=== PATIENT | female | born 1955 | race Caucasian/White ===

== ENCOUNTER 2016-11-07 18:37 | Emergency (ER) | payer BC ==
[2016-11-07] MEDS ORDERED: Aspirin Low Dose CHEW TAB* 81 MG PO ONE (19:44)
[2016-11-07] MEDS ORDERED: diPHENhydraMINE IV* 50 MG/ML 1 ml VIAL (BENADRYL) SLOW PUSH ONE (20:16)
[2016-11-07] MEDS ORDERED: Metoclopramide IV* 5 MG/ML 2 ML VIAL IV SLOW PU ONE (20:16)
[2016-11-07] MEDS ORDERED: NS 0.9% 1000 ML* 1,000 ML IV ONE (20:18)
--- NOTE | 2016-11-07 21:07 | RAD ---
Indication: Recurrent headaches. CT of the brain was performed without IV contrast. Ventricular structures are midline. No midline shift is noted. The extra-axial spaces are unremarkable. There is no evidence of intracranial mass or hemorrhage. No other high or low density lesions identified. Mastoid air cells and paranasal sinuses are otherwise unremarkable. IMPRESSION: No intracranial mass or hemorrhage is noted.
--- NOTE | 2016-11-07 21:08 | RAD ---
Indication: Headaches, hypertension. Single frontal view of the chest performed at 1955 hours was reviewed. No prior study is available for comparison. No mediastinal shift is noted. Heart is of normal size and configuration. Lung garcia appear clear. IMPRESSION: NO ACTIVE CARDIOPULMONARY DISEASE IS NOTED.
[2016-11-07 21:56] LABS: Hematocrit 42 % (35-47); Hemoglobin 14.1 g/dl (12.0-16.0); Mean Corpuscular HGB Conc 34 g/dl (31-36); Mean Corpuscular Hemoglobin 31 pg (27-31); Mean Corpuscular Volume 90 fL (80-97); Mean Platelet Volume 8 um3 (7.4-10.4); Red Cell Distribution Width 14 % (10.5-15); White Blood Count 9.4 10^3/ul (3.5-10.8)
[2016-11-07 22:07] LABS: Albumin 4.7 g/dL (3.2-5.2); BUN/Creatinine Ratio 14.9 (8-20); Calcium 9.9 mg/dL (8.6-10.3); EGFR African American 103.3 (>60); EGFR Non-African American 80.3 (>60); Globulin 2.9 g/dL (2-4); Potassium 3.1 mmol/L (3.5-5.0); Total Bilirubin 0.9 mg/dL (0.2-1.0); Total Protein 7.6 g/dL (6.4-8.9)
[2016-11-07] MEDS ORDERED: Ketorolac INJ* 30 MG/ML 1 ML VIAL IV PUSH ONE (22:40)
[2016-11-07] MEDS ORDERED: Dexamethasone IV* 4 MG/ML 1 ML (4 MG) IV SLOW PU ONE (22:40)
[2016-11-07] MEDS ORDERED: Potassium Chlor TAB* 20 MEQ TAB.ER PO ONE (22:43)
[2016-11-07 22:48] LABS: Erythrocyte Sed Rate 8 mm/Hr (0-30)
[2016-11-07 23:30] VITALS: BP 148/75
--- NOTE | 2016-11-20 15:21 | ED ---
Renetta Andrade Thomas, scribed for Milton Cohen MD on 11/07/16 at 2053 . Headache - HPI Summary HPI Summary: The pt is a 61 y/o F presenting to the ED c/o c/o a headache that began today at 04:30. The headache is located on her right temporal region and radiates to her occiput, jaw, and her neck. She says that the headache pain comes in waves. The pt rates the pain 8/10. Her headache has somewhat relieved at time of examination. She treated the headache with Emetrol prior to arrival, but this did not relieve pain. A few hours after the onset of her headache, she began to feel nauseous and she has vomited 12x between 08:00 and 18:00. She says that she immediately vomits any liquids or solids that she eats. She feels dehydrated. Pt additionally c/o elevated blood pressure in the 160s/90s that she first noticed today at 09:00. She says that her BP is normally 110/60. Pt denies an aura before this headache, photophobia, SOB, CP, dizziness, lightheadedness, diarrhea, arm pain, numbness, and tingling. When asked if she has been feeling fevers or chills, the patient is unsure because she occasionally experiences hot flashes and she cannot differentiate. This is her first time coming to the ED for her headaches. PMHx: Takotsubo, headaches. PSHx : unspecified abdominal surgery. SHx: no smoking, no alcohol use, no illicit drug use. FHx: migraines. Five months ago, she was incorrectly diagnosed with CHF. Following workup with EKG, echocardiogram, and CXR, she was diagnosed with Takotsubo. She is not on any blood pressure medications. She has a history of headaches although she denies a diagnosis of migraines. She says that this is her first major headache since menopause. She is accompanied by her . Her PCP is Dr. Herrera. - History Of Current Complaint Chief Complaint: EDDysrhythmPalp Stated Complaint: HEADACHE/VOMITING/HIGH BLOOD PRESSURE Time Seen by Provider: 11/07/16 19:44 Hx Obtained From: Patient, Family/Negative Cleaner - in room Onset/Duration: Started hours ago - onset today at 04:30, Still Present Currently Pain Is: Current Pain Scale(0-10)= - 8 Timing: Constant Location of Headache: Temporal - right temporal Radiates to: Occiput, jaw, and neck Aggravating Factor: Nothing Allevating Factors: Nothing Associated Signs And Symptoms: Nausea, Vomiting, Other (Noted In Comments) - POS : elevated BP; NEG:aura before this headache, photophobia, SOB, CP, dizziness, lightheadedness, diarrhea, arm pain, numbness, and tingling Related History: Similar Episode/DX As: - Hx of migraines - Allergies/Home Medications Allergies/Adverse Reactions: Allergies Allergy/AdvReac Type Severity Reaction Status Date / Time Penicillins [PCN] Allergy Hives Verified 11/07/16 19:18 PMH/Surg Hx/FS Hx/Imm Hx Previously Healthy: No Cardiovascular History: Reports: Other Cardiovascular Problems/Disorders - Hx Takotsubo Neurological History: Reports: Hx Headaches - Cancer History Hx Chemotherapy: No Hx Radiation Therapy: No - Surgical History Surgery Procedure, Year, and Place: unspecified abdominal surgery Infectious Disease History: No Infectious Disease History: Denies: Traveled Outside the [place] in Last 30 Days - Family History Known Family History: Positive: Other - POS: migraines - Social History Alcohol Use: None Substance Use Type: Reports: None Smoking Status (MU): Never Smoked Tobacco Review of Systems Positive: Chills - possibly, but she also has hot flashes. Negative: Fever Negative: Photophobia, Erythema - eyes Negative: Sore Throat Positive: Other - POS: BP in 160s/90s. Negative: Chest Pain Negative: Shortness Of Breath, Cough Positive: Vomiting - 12x between 08:00 and 18:00, Nausea. Negative: Abdominal Pain, Diarrhea Negative: dysuria, hematuria Negative: Myalgia, Edema - legs, Other - NEG: arm pain Negative: Rash Neurological: Other - NEG: dizziness, lightheadedness, tingling Positive: Headache - onset today at 04:30, right temporal and radiates to occiput, jaw, and neck. Negative: Numbness All Other Systems Reviewed And Are Negative: Yes Physical Exam - Summary Physical Exam Summary: Constitutional: Well-developed, Well-nourished, Alert. (-) Distressed Skin: Warm, Dry HENT: Normocephalic; Atraumatic. She has maxillary and frontal sinus tenderness to palpation. Eyes: Conjunctiva normal Neck: Musculoskeletal ROM normal neck. (-) JVD, (-) Stridor, (-) Tracheal deviation Cardio: Rhythm regular, rate normal, Heart sounds normal; Intact distal pulses; The pedal pulses are 2+ and symmetric. Radial pulses are 2+ and symmetric. (-) Murmur Pulmonary/Chest wall: Effort normal. (-) Respiratory distress, (-) Wheezes, (-) Rales Abd: Soft, (-) Tenderness, (-) Distension, (-) Guarding, (-) Rebound Musculoskeletal: (-) Edema Lymph: (-) Cervical adenopathy Neuro: Alert, Oriented x3 Psych: Mood and affect Normal Triage Information Reviewed: Yes Vital Signs On Initial Exam: Initial Vitals Temp Pulse Resp BP Pulse Ox 97.4 F 68 16 169/93 99 11/07/16 18:39 11/07/16 18:39 11/07/16 18:39 11/07/16 18:39 11/07/16 18:39 Vital Signs Reviewed: Yes - [place] Coma Scale Coma Scale Total: 15 Diagnostics - Vital Signs Vital Signs Temp Pulse Resp BP Pulse Ox 11/07/16 18:39 97.4 F 68 16 169/93 99 - Laboratory Result Diagrams: 11/07/16 21:24 11/07/16 21:24 Lab Statement: Any lab studies that have been ordered have been reviewed, and results considered in the medical decision making process. - Radiology CXR Xray Interpretation: No Acute Changes - CXR shows no active cardiopulmonary disease. ED Physician has read this report and agrees. Radiology Interpretation Completed By: Radiologist - CT CT Brain CT Interpretation: No Acute Changes - CT Brain shows no intracranial mass or hemorrhage is noted. ED Physician has reviewed this report and agrees. CT Interpretation Completed By: Radiologist - EKG 20:00 Cardiac Rate: Bradycardia - 59 BPM EKG Interpretation: Sinus bradycardia. No STEMI. Re-Evaluation - Re-Evaluation First Eval Re-Evaluation Time: 22:45 Change: Improved Comment: She is feeling better and is tolerating solids and PO liquids. Headache Course/Dx - Course Assessment/Plan: The pt is a 61 y/o F presenting to the ED c/o c/o a headache that began today at 04:30. The headache is located on her right temporal region and radiates to her occiput, jaw, and her neck. She says that the headache pain comes in waves. The pt rates the pain 8/10. Her headache has somewhat relieved at time of examination. She treated the headache with Emetrol prior to arrival, but this did not relieve pain. A few hours after the onset of her headache, she began to feel nauseous and she has vomited 12x between 08:00 and 18:00. She says that she immediately vomits any liquids or solids that she eats. She feels dehydrated. Pt additionally c/o elevated blood pressure in the 160s/90s that she first noticed today at 09:00. She says that her BP is normally 110/60. Pt denies an aura before this headache, photophobia, SOB, CP, dizziness, lightheadedness, diarrhea, arm pain, numbness, and tingling. When asked if she has been feeling fevers or chills, the patient is unsure because she occasionally experiences hot flashes and she cannot differentiate. This is her first time coming to the ED for her headaches. PMHx: Takotsubo, headaches. PSHx : unspecified abdominal surgery. SHx: no smoking, no alcohol use, no illicit drug use. FHx: migraines. Five months ago, she was incorrectly diagnosed with CHF. Following workup with EKG, echocardiogram, and CXR, she was diagnosed with Takotsubo. She is not on any blood pressure medications. She has a history of headaches although she denies a diagnosis of migraines. She says that this is her first major headache since menopause. She is accompanied by her . Her PCP is Dr. Herrera. In the ED course the patient was givne ASA, IV fluids , Reglan, Benadryl, ASA, Decadron, and Toradol. Bloodwork was obtained and it shows potassium 3.1 and chloride 98. EKG shows SB and no STEMI. CXR shows no active cardiopulmonary disease. CT Brain shows no intracranial mass or hemorrhage is noted. ED Physician has reviewed this report and agrees. At re- evaluation at 22:45, she is feeling better and tolerates solids and PO liquids. She is diagnosed with migraine [place] and will follow up with neurology in 3-5 days. She is stable and agreeable to this plan. - Diagnoses Provider Diagnoses: Migraine headache Discharge - Discharge Plan Condition: Stable Disposition: HOME Prescriptions: Ondansetron ODT TAB* [Zofran 4 MG Odt TAB*] 4 mg PO Q8H PRN #9 tab.odt PRN Reason: Nausea/Vomiting Referrals: Flora Herrera MD [Primary Care Provider] - If Needed Brijesh Mueller MD [Medical Doctor] - 3 Days Additional Instructions: I advise you to take ibuprofen for the pain. Follow up with Dr. Mueller, neurology, in 3-5 days. Return to the emergency department for any changing or worsening symptoms. The documentation as recorded by the Renetta owen Thomas accurately reflects the service I personally performed and the decisions made by me, Milton Cohen MD.
== END 2016-11-07 23:35 | disposition home or self-care (01) ==
LOC: ED 18:37
DX: G43.909 Migraine, unspecified, not intractable, without status migrainosus (principal); R11.2 Nausea with vomiting, unspecified; R68.83 Chills (without fever); R11.10 Vomiting, unspecified
CPT/HCPCS: 36415; 70450; 71010; 80053; 83605; 84484; 85025; 85652; 86141; 93005; 96374; 96375; 99282; A9270-GY; J1100; J1200; J1885; J2765

== ENCOUNTER 2017-03-28 14:49 | Emergency (ER) | payer BC | END 2017-03-28 18:18 | disposition left against medical advice (07) | LOC: UCEAST 14:49 | DX: J11.1 Influenza due to unidentified influenza virus with other respiratory manifestations (principal); Z53.21 Procedure and treatment not carried out due to patient leaving prior to being seen by health care provider ==

== ENCOUNTER 2018-06-03 21:07 | Emergency (ER) | payer BC ==
[2018-06-03 22:20] VITALS: BP 128/54
--- NOTE | 2018-06-03 23:07 | UC ---
Laceration HPI - HPI Summary HPI Summary: Pt presents to with laceration left index finger along lateral margin. no nail involvement. Pt LHD no anticoagulants. no immunosuppressants. Pt came because unable to stop bleeding. Prolonged wait to be seen - bleeding controlled. 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 states she things her tdap is UTD - History Of Current Complaint Chief Complaint: UCLaceration Stated Complaint: FINGER LAC Time Seen by Provider: 06/03/18 22:04 Hx Obtained From: Patient, Family/Twisting Machine Operator Laceration Location: Finger Pain Intensity: 2 - Allergies/Home Medications Allergies/Adverse Reactions: Allergies Allergy/AdvReac Type Severity Reaction Status Date / Time Penicillins Allergy Hives Verified 06/03/18 22:21 Home Medications: Home Medications Sertraline* [Zoloft*] 75 mg PO DAILY 06/03/18 [History Confirmed 06/03/18] Supplements* 06/03/18 [History] traZODone TAB* [Desyrel TAB*] 50 mg PO BEDTIME 06/03/18 [History Confirmed 06/03] PMH/Surg Hx/FS Hx/Imm Hx Previously Healthy: Yes - Surgical History Surgical History: None - Family History Known Family History: Positive: Non-Contributory - Social History Lives: With Family Alcohol Use: Occasionally Substance Use Type: None Smoking Status (MU): Never Smoked Tobacco Review of Systems All Other Systems Reviewed And Are Negative: Yes Skin: Positive: Other - 1cm V shape laceration left index Physical Exam - Summary Physical Exam Summary: Vital Signs Reviewed: Yes A+Ox3, no distress Eyes: Conjunctiva Clear ENT: Hearing grossly normal Neck: Positive: Supple Respiratory: Positive: No respiratory distress, No accessory muscle use Cardiovascular: RRR CBT <2 sec + radial Musculoskeletal Exam: 5/5 flex/ext MCP, DIP, PIP lef t indjex Neuro: full sensation and strength fijger Psychological: Positive: Normal Response To Family Skin: Positive: 1cm V shaped skin flap left index, lateral asepct no active bleeding, Triage Information Reviewed: Yes Vital Signs: Initial Vital Signs Temp 97.9 F 06/03/18 22:18 Pulse 67 06/03/18 22:18 Resp 16 06/03/18 22:18 BP 128/54 06/03/18 22:18 Pulse Ox 99 04/12/19 22:18 Laceration Repair - Laceration Repair 2 Procedure Summary: d/w pt at length regarding wound care Pt very hesistant to have sutures related to persiste parethesia over long healed scar with sutures wound clean irrgated vigorously - removed clot from under flap Lays flat, bleeding controlled with gentle pressure after much discussion, wound closed with dermabond cover with non stick and splint d/w pt at length regarding woudn care s/s infecion pt given gloves to keep dry Laceration Course/Dx - Course/Dx Course Of Treatment: Pt with V shaped lac to index, left dominant hand - no nail involvment tdap presumed utd - pt will check with PCP after disussion, pt declined suture wound irrigated closed with dermabond splint placed for protrection f/u with pcp re tdap and woudn concerns pt comfortable and in agreement with plan - Diagnosis Provider Diagnosis: Laceration Discharge - Sign-Out/Discharge Documenting (check all that apply): Patient Departure All imaging exams completed and their final reports reviewed: No Studies - Discharge Plan Condition: Good Disposition: HOME Patient Education Materials: Skin Adhesive Care (ED) Referrals: Flora Herrera MD [Primary Care Provider] - Additional Instructions: -Keep wound completely dry as much as possible for the next 3-4 days -Wear splint to help decrease movement of the wound as well as to protect if from being disrupted -Elevate your hand over the next 24-36 hours to help with swelling and pain -Alternate ibuprofen (Advil, Motrin) and tylenol every 3 hours for pain -Monitor your wound for signs of infection - reddness, red streaking, odor, drainage - If your wound opens - cover with antibiotic ointment and bandage -Contact your doctor on Wednesday to confirm your tetanus is up tod date - Billing Disposition and Condition Condition: GOOD Disposition: Home
== END 2018-06-03 23:20 | disposition home or self-care (01) ==
LOC: UCEAST 21:07
DX: S61.211A Laceration without foreign body of left index finger without damage to nail, initial encounter (principal); W26.8XXA Contact with other sharp object(s), not elsewhere classified, initial encounter; Y92.9 Unspecified place or not applicable; Z88.0 Allergy status to penicillin
CPT/HCPCS: 12001; 99212; G0463